=== PATIENT | male | born 1985 | race Caucasian/White ===

== ENCOUNTER 2020-01-22 08:05 | Emergency (ER) | payer MEDICAID ==
[~2020-01-22] VITALS: Ht 180.3 cm; Wt 80.0 kg
[2020-01-22 08:07] VITALS: BP 122/74
[2020-01-22] MEDS ORDERED: CHLO473M3 PO (08:38)
[2020-01-22] MEDS ORDERED: PENI500T2 PO (08:38)
== END 2020-01-22 09:35 | disposition home or self-care (01) ==
LOC: ER 08:06
DX: K08.89 Other specified disorders of teeth and supporting structures (principal); F12.90 Cannabis use, unspecified, uncomplicated; Z79.899 Other long term (current) drug therapy
CPT/HCPCS: 99283

== ENCOUNTER 2021-07-15 01:12 | Emergency (ER) | payer MEDICAID ==
[~2021-07-15] VITALS: Ht 180.3 cm; Wt 90.9 kg
[~2021-07-15 01:12] MED LIST: CHLO473M3 PO
[2021-07-15 02:08] LABS: BASOPHILS % (AUTO) 0.3 % (0-1); EOSINOPHILS # (AUTO) 0.1 X10'3 (0-0.9); EOSINOPHILS % (AUTO) 1.1 % (0-6); HEMATOCRIT 40.6 % (42.0-52.0); HEMOGLOBIN 14.2 g/dl (14.0-17.9); LYMPHOCYTES # (AUTO) 0.3 X10'3 (1.1-4.8); LYMPHOCYTES % (AUTO) 4.1 % (21-51); MEAN CORPUSCULAR HEMOGLOBIN 29.7 PG (27.0-31.0); MEAN CORPUSCULAR VOLUME 84.9 FL (78-98); MEAN PLATELET VOLUME 7.7 FL (7.4-10.4); MONOCYTES # (AUTO) 0.8 X10'3 (0-0.9); MONOCYTES % (AUTO) 11.3 % (2-12); NEUTROPHILS # (AUTO) 6.1 X10'3 (1.8-7.7); NEUTROPHILS % (AUTO) 83.2 % (42-75); PLATELET COUNT 226 X10'3 (140-440); RED BLOOD COUNT 4.78 X10'6 (4.70-6.10); RED CELL DISTRIBUTION WIDTH 12.6 % (11.5-14.5); WHITE BLOOD COUNT 7.4 X10'3 (4.5-11.0)
[2021-07-15 02:12] LABS: ALBUMIN 4.1 G/DL (3.4-5.0); ANION GAP 12 (8-16); BLOOD UREA NITROGEN 11 MG/DL (7-18); BUN/CREATININE RATIO 8.4 (5.4-32.0); CALCIUM 8.9 MG/DL (8.5-10.1); CHLORIDE 106 MMOL/L (99-107); CREATININE 1.31 MG/DL (0.60-1.10); GLUCOSE 126 MG/DL (70-104); POTASSIUM 3.2 MMOL/L (3.5-5.1); SODIUM 140 MMOL/L (135-145); TOTAL CARBON DIOXIDE 22.2 MMOL/L (24-32); eGFR 61 ML/MIN
[2021-07-15 03:36] VITALS: BP 130/64
--- NOTE | 2021-07-15 04:00 | NUR ---
called pt to give positive covid results. reminded pt to quarentine 14 days and follow d/c instructions.
== END 2021-07-15 03:39 | disposition home or self-care (01) ==
LOC: ER 01:13
DX: U07.1 COVID-19 (principal); R50.9 Fever, unspecified; R53.1 Weakness; R53.83 Other fatigue; R20.0 Anesthesia of skin; F12.90 Cannabis use, unspecified, uncomplicated; Z72.89 Other problems related to lifestyle; Z79.899 Other long term (current) drug therapy
CPT/HCPCS: 36415; 80048; 85025; 87635; 99283; C9803